=== PATIENT | male | born 1940 | race Caucasian/White ===

== ENCOUNTER → 2016-06-10 | Outpatient (CLI) | payer BC ==
[~2016-06-10] MED LIST: DIABETES MED; MULT-506; SIMV20TA2 PO
[2016-06-10 09:40] LABS: BASO % 1.1 %; BASO ABS # 0.07 K/uL (0-0.2); COMPLETE YES; EOS % 4.9 %; HEMATOCRIT 44.7 % (42-52); IG% 0.2 %; LYMPH % 30.7 %; LYMPH ABS # 2.02 K/uL (1.2-3.4); MEAN CELL VOLUME 88.7 fL (80-100); MEAN CORPUSCULAR HGB CONC 33.8 g/dl (32-36); MONO % 6.8 %; NEUT % 56.3 %; PLATELET COUNT 189 K/uL (130-400); RED BLOOD COUNT 5.04 M/uL (4.7-6.1); WHITE BLOOD COUNT 6.59 K/uL (4.8-10.8)
[2016-06-10 09:57] LABS: ESTIMATED AVERAGE GLUCOSE 120 mg/dl; HA1C FLAG Normal (Normal)
[2016-06-10 10:06] LABS: ALT/SGPT 36 U/L (12-78); BLOOD UREA NITROGEN 19 mg/dl (7-18); BUN/CREATININE RATIO 14.2 (10-20); CALCIUM 8.8 mg/dl (8.5-10.1); CARBON DIOXIDE 26 mmol/L (21-32); CHLORIDE 107 mmol/L (98-107); CHOLESTEROL 145 mg/dl (0-200); GLUCOSE 102 mg/dl (70-99); POTASSIUM 3.8 mmol/L (3.5-5.1); SODIUM 145 mmol/L (136-145); TRIGLYCERIDES 191 mg/dl (0-150); VERY LOW DENSITY LIPOPROT CALC 38 mg/dl
[2016-06-10 10:09] LABS: ALB/GLOB RATIO 1.2 (0.9-2); ALKALINE PHOSPHATASE 60 U/L (45-117); AST/SGOT 18 U/L (15-37); CHOLESTEROL/HDL RATIO 3.6; HDL CHOLESTEROL 40 mg/dl; LDL CHOLESTEROL CALCULATED 67 mg/dl
--- NOTE | 2016-06-17 10:06 | CODING QUERY MEDICAL NECESSITY ---
SUPPORTING DIAGNOSIS NEEDED A supporting diagnosis is required for the test/procedure performed on this patient in order for us to be reimbursed by the patient's insurance. Please provide a supporting diagnosis for the following test/procedure listed below next to the test name along with your signature. *If there is no additional diagnosis for this patient that would support the following test/procedure please document that below next to the test/procedure. Test(s)/Procedure(s) that require a supporting diagnosis: * GLYCATED HEMOGLOBIN DIAGNOSIS: * DOS: 06/10/16 Provider Signature: Date: Thank you Luda Springer [facility] Information Management Once completed, please kindly fax back to [phone] For questions please call [phone]
== END | disposition home or self-care (01) ==
LOC: C.LAB 08:58
PROVIDERS: ATTEND Internal Medicine
DX: E78.5 Hyperlipidemia, unspecified (principal); R73.09 Other abnormal glucose

== ENCOUNTER → 2016-12-17 | Outpatient (CLI) | payer BC ==
[2016-12-17 13:53] LABS: ESTIMATED AVERAGE GLUCOSE 123 mg/dl; HA1C FLAG Normal (Normal)
== END | disposition home or self-care (01) ==
LOC: C.LAB 12:04
PROVIDERS: ATTEND Internal Medicine
DX: R73.09 Other abnormal glucose (principal)

== ENCOUNTER → 2017-01-27 | Outpatient (CLI) | payer BC ==
--- NOTE | 2017-01-27 14:06 | DIAGNOSTIC IMAGING REPORT ---
CHEST 2 VIEWS ROUTINE CLINICAL HISTORY: COUGH dyspnea COMPARISON STUDY: No previous studies for comparison. FINDINGS: Mild emphysematous change. Lungs are clear. Diaphragms smooth but somewhat flattened. IMPRESSION: No acute process. The above report was generated using voice recognition software. It may contain grammatical, syntax or spelling errors. Electronically signed by: Mekhi Lopez M.D. 01/27/2017 2:04 PM Dictated Date/Time: 01/27/2017 2:04 PM
== END | disposition home or self-care (01) ==
LOC: C.RAD 13:40
PROVIDERS: ATTEND Physician Assistant
DX: R05 Cough (principal)

== ENCOUNTER → 2017-03-28 | Outpatient (CLI) | payer BC ==
--- NOTE | 2017-03-28 09:17 | DIAGNOSTIC IMAGING REPORT ---
SOFT TISS HEAD/NECK-THYROID CLINICAL HISTORY: 76 years-old Male presenting with M54.2 Neck pain on left side 03/28. TECHNIQUE: Real-time grayscale and color Doppler ultrasound imaging of the thyroid and base of the neck was performed. COMPARISON: None. FINDINGS: Right lobe: Normal echogenicity and echotexture. The right lobe of the thyroid measures 1.7 x 5.2 x 1.7 cm. 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 No parenchymal hyperemia. Left lobe: Normal echogenicity and echotexture. The left lobe of the thyroid measures 2.0 x 4.5 x 1.9 cm. No nodules. No parenchymal hyperemia. Isthmus: The isthmus measures 6 mm in thickness. No nodules. Other: At the site of clinical concern in the left superior cervical region, no sonographic abnormality or lymphadenopathy is detected. IMPRESSION: 1. Essentially normal thyroid ultrasound. 2. No sonographic abnormality at the site of clinical concern. Electronically signed by: Getachew Barrett M.D. 03/28/2017 9:15 AM Dictated Date/Time: 03/28/2017 9:13 AM
== END | disposition home or self-care (01) ==
LOC: C.ULTR 08:27
PROVIDERS: ATTEND Physician Assistant
DX: M54.2 Cervicalgia (principal)

== ENCOUNTER → 2017-06-11 | Outpatient (CLI) | payer BC ==
[2017-06-11 12:24] LABS: ALBUMIN 3.9 gm/dl (3.4-5.0); ALT/SGPT 29 U/L (12-78); BLOOD UREA NITROGEN 27 mg/dl (7-18); CALCIUM 9.5 mg/dl (8.5-10.1); CARBON DIOXIDE 28 mmol/L (21-32); CHOLESTEROL 142 mg/dl (0-200); CREATININE 1.45 mg/dl (0.60-1.40); GLUCOSE 106 mg/dl (70-99); POTASSIUM 4.3 mmol/L (3.5-5.1); SODIUM 141 mmol/L (136-145)
[2017-06-11 12:27] LABS: ALKALINE PHOSPHATASE 73 U/L (45-117); AST/SGOT 18 U/L (15-37); LDL CHOLESTEROL CALCULATED 53 mg/dl
== END | disposition home or self-care (01) ==
LOC: C.LAB 09:39
PROVIDERS: ATTEND Internal Medicine
DX: I35.8 Other nonrheumatic aortic valve disorders (principal)

== ENCOUNTER → 2017-06-16 | Outpatient (CLI) | payer BC ==
[2017-06-16 12:36] LABS: BLOOD UREA NITROGEN 26 mg/dl (7-18); CARBON DIOXIDE 28 mmol/L (21-32); CREATININE 1.32 mg/dl (0.60-1.40); GLUCOSE 110 mg/dl (70-99); POTASSIUM 4.1 mmol/L (3.5-5.1); SODIUM 142 mmol/L (136-145)
== END | disposition home or self-care (01) ==
LOC: C.LAB 10:20
PROVIDERS: ATTEND Internal Medicine
DX: N28.9 Disorder of kidney and ureter, unspecified (principal); R00.1 Bradycardia, unspecified

== ENCOUNTER 2017-06-20 06:35 | Observation (INO) | payer BC ==
[2017-06-20] VITALS (8 sets, daily range): BP systolic 130–154; BP diastolic 66–88; PULSE 37–60; TEMP 36.4–37.1; O2SAT 93–96; Ht 182.9 cm; Wt 99.1 kg
[~2017-06-20] VITALS: Ht 182.9 cm; Wt 99.1 kg
[~2017-06-20 06:35] MED LIST changes: +CEFAZOLIN 2000MG IV PUSH 15 ML IV SCH; +LACTATED RINGER'S 1000ML IV SCH
[2017-06-20] MEDS ORDERED: FENTANYL CITRATE INJ 50 MCG/1 ML 2 ML VIAL ONE ×2 (07:04→10:24)
[2017-06-20] MEDS ORDERED: MIDAZOLAM HCL 5 MG/ML 1 ML VIAL ONE ×2 (07:05→10:24)
[2017-06-20] MEDS ORDERED: PRAV20TA PO (07:41)
[2017-06-20] MEDS ORDERED: OMEG10007 PO (07:41)
[2017-06-20] MEDS ORDERED: OPTHALMIC OPB (07:41)
[2017-06-20] MEDS ORDERED: MULT-506 PO (07:41)
[2017-06-20] MEDS ORDERED: METF-384 PO (07:41)
[2017-06-20 08:09] LABS: PTT PATIENT 25.6 SECONDS (21.0-31.0)
[2017-06-20] MEDS ORDERED: CEFAZOLIN SOD 2000MG/15 ML IV PUSH IV ONE (08:25)
--- NOTE | 2017-06-20 09:07 | History & Physical Bridge Note ---
H&P Re-Evaluation Bridge Note: I have examined the patient, reviewed the History & Physical and in the interval since the performance of the History & Physical I have noted the following changes of clinical significance: No changes noted. I reviewed the indications, procedure, risks and alternatives of pacemaker implantation with him and his , they understand and he agrees to proceed. Consent obtained. I also reviewed the procedure and risks of sedation and he understands and agrees. Consent obtained.
--- NOTE | 2017-06-20 09:08 | Pre Sedation Assessment ---
Pre Sedation Assessment General Date of Sedation: Jun 20, 2017. Vital Signs Past 12 Hours Date Time Temp Pulse Resp B/P (MAP) Pulse Ox O2 Delivery O2 Flow Rate FiO2 06/20/17 07:47 36.6 37 18 130/66 (87) 93 Room Air Review Cardiovascular: + bradycardia, + irregularly irregular Lungs: lungs clear Pre-Sedation Airway Assessment Smoking Status: Former Smoker Hx of Sleep Apnea: No Short Thick Neck: No Thyro-mental Distance: > 3 Finger Breadths Oral Cavity: WNL Mallampati Classification: Class II ASA Classification: Class II NPO Status Date of Last Intake of Fluids: Jun 19, 2017 Time of Last Intake of Fluids: 2100 Date of Last Intake of Solids: Jun 19, 2017 Time of Last Intake of Solids: 1830 Procedure Planning Contraindications for Sedation: None Current Medications Reviewed: Yes Notes The planned sedation has been discussed with the patient. Informed Consent was obtained. I have identified the patient, determined the appropriateness of sedation and have assessed the patient immediately prior to the procedure. All medicine(s) and interventions are by my order.
[2017-06-20] MEDS ORDERED: LIDOCAINE HCL 1% 20 ML VIAL ONE (09:23)
[2017-06-20] MEDS ORDERED: BACITRACIN OINT 0.9 GM PKT ONE (10:51)
--- NOTE | 2017-06-20 11:05 | [facility] Operative Report ---
Operative Report Operative Date Jun 20, 2017. Pre-Operative Diagnosis Intermittent complete heart block Post-Operative Diagnosis Same Procedure(s) Performed left subclavian venogram Dual-chamber pacemaker implantation Surgeon Dr. Kennedy Electrical Engineering Manager Surgeon(s) None Estimated Blood Loss 20 cc Findings Good lead position, good measurements Specimens None Anesthesia Local with sedation Complication(s) None Disposition PCU Description of Procedure After obtaining informed consent for the procedure, the patient was brought to the laboratory and prepped and draped in the standard sterile manner. The left prepectoral region was anesthetized with 1% lidocaine local anesthetic and left axillary venipuncture was performed by percutaneous technique and a guidewire placed through the left subclavian vein into the superior vena cava. The area was further infiltrated with 1% lidocaine local anesthetic and a 5 cm incision was made parallel to the left clavicle and 2 cm below it and carried down to the anterior pectoralis fascia. A pacemaker pocket was formed by blunt dissection anterior to the pectoralis fascia and a bacitracin-soaked sponge (50, 000 units in 50 cc normal saline solution) was placed in the pocket. An 8 [employer] Medtronic lead introducer was placed over the guidewire into the left subclavian vein, the dilator and guidewire were removed and a bipolar active fixation steroid tipped ventricular lead was advanced through the introducer into the superior vena cava. A guidewire was placed through the introducer and the introducer was stripped from the lead and guidewire. Another 8 [employer] Medtronic lead introducer was placed over the guidewire into the left subclavian vein, the dilator and guidewire were removed and a bipolar active fixation steroid tipped atrial lead was advanced through the introducer into the superior vena cava. A guidewire was placed back through the introducer and the introducer was stripped from the lead and guidewire. Using a curved stylette the ventricular lead was advanced through the right ventricular outflow tract into the pulmonary artery and then using a straight stylette was positioned in the right ventricular apex. The screw was extended fixing the lead in position. Pacing and sensing thresholds were evaluated in bipolar configuration and are recorded on the implant data sheet. Using a curved stylette the atrial lead was positioned in the region of the atrial appendage and the screw extended fixing the lead in position. Pacing and sensing thresholds were evaluated in bipolar configuration and are recorded on the implant data sheet. Once the leads were in position they were attached to the anterior pectoralis fascia using 2 sutures of 2-0 silk around each lead collar. The bacitracin- soaked sponge was removed from the pocket, hemostasis was obtained, the pacemaker was attached to the leads and placed in the pocket with the leads coiled beneath it. The incision was closed with a running double subcutaneous closure of 3-0 V-Lock absorbable suture, followed by running subcuticular skin closure of 4-0 V-Lock absorbable suture. Bacitracin ointment was placed on the incision and a pressure dressing applied. I attest to the content of the Intraoperative Record and any orders documented therein. Any exceptions are noted below.
[2017-06-20] MEDS ORDERED: KETOROLAC TROMETHAMINE 10 MG TAB PO PRN (11:15)
[2017-06-20] MEDS ORDERED: ACETAMINOPHEN 325 MG TAB PO PRN (11:15)
--- NOTE | 2017-06-20 11:18 | Post Sedation Assessment ---
Post Sedation Assessment General Date of Sedation Jun 20, 2017. Vital Signs: Vital Signs Past 12 Hours Date Time Temp Pulse Resp B/P (MAP) Pulse Ox O2 Delivery O2 Flow Rate FiO2 06/20/17 07:47 36.6 37 18 130/66 (87) 93 Room Air Post Procedure Recovery Score Activity: (2) Moves 4 extremities * Respiration: (2) Deep breath/cough Circulation: (2) +/-20% PreAnes Value Consciousness: (2) Fully Awake Oxygen Saturation: (2) > 92% On Room Air Post Anesthesia Score: 10 Discharge Sedation Level of Care: Fast Track Phase II Post Sedation Plan On clinical assessment, the patient appears to have tolerated the sedation without complications. Patient is recovering as anticipated. Patient will continue to be monitored by nursing and may be discharged when sedation discharge criteria are met per below protocol. Upon Completions of procedure and additional 15 minutes continue every 5 minute vital signs and the P.A.R. score; then discharge to a Phase I or Fast Track to Phase II per the following guidelines: * Discharge Patient to appropriate Phase II area if PAR is 8 or greater or return to pre- procedure baseline. The post - procedure orders will be as directed. * If PAR score is less than 8 or not return to pre-procedure baseline then patient will follow Phase I monitoring till PAR is reached for Phase II. The Phase I may be done in procedure room or may call to secure a Phase I area. * If naloxone or flumazenil are used for reversal, hold in Phase I for an additional 60 -120 minutes before discharge to Phase II. Please call the Sedation Physician to re-evaluate and complete post-note for discharge to Phase II area. Do NOT discharge from procedure sedation or Phase 1 until post- sedation evaluation note is complete by procedure /sedation MD Sedation Discharge Instructions to be given to the patient at discharge to home.
[2017-06-20] MEDS ORDERED: IV FLUIDS COMPLETED PRN (14:00)
[2017-06-20] MEDS ORDERED: PRAVASTATIN SOD 40 MG TAB PO SCH (21:00)
[2017-06-21] VITALS: O2SAT 94
[2017-06-21 03:39] VITALS: BP 127/79; PULSE 59; TEMP 37; O2SAT 95
[2017-06-21 04:00] VITALS: O2SAT 94
--- NOTE | 2017-06-21 08:06 | DIAGNOSTIC IMAGING REPORT ---
CHEST 2 VIEWS ROUTINE CLINICAL HISTORY: EXACT TIME ORDERED Evaluate for pneumothorax and lead placement COMPARISON STUDY: 01/27/2017 FINDINGS: Placement of a bipolar cardiac pacemaker. Leads in good position. No evidence of pneumothorax. Minimal atelectasis left base. IMPRESSION: Placement of a permanent bipolar cardiac pacemaker with leads in good position. No evidence for pneumothorax. The above report was generated using voice recognition software. It may contain grammatical, syntax or spelling errors. Electronically signed by: Mekhi Lopez M.D. 06/21/2017 8:05 AM Dictated Date/Time: 06/21/2017 8:04 AM
[2017-06-21 08:14] VITALS: BP 131/74; PULSE 66; TEMP 36.6; O2SAT 93
[2017-06-21] MEDS ORDERED: MULTIVITAMIN TAB PO SCH (09:00)
--- NOTE | 2017-06-21 09:04 | Cardiology Follow-Up ---
Subjective Date of Service: Jun 21, 2017. Pt evaluation today including: conversation w/ patient, physical exam, lab review, review of studies, review of inpatient medication list History of Present Illness Doing well post op, no complaints, minimal discomfort Social History Smoking Status: Former Smoker History of Alcohol Use: Yes (occ drink) Review of Systems Respiratory: No shortness of breath Cardiac: No chest pain Objective Vital Signs Past 12 Hours Date Time Temp Pulse Resp B/P (MAP) Pulse Ox O2 Delivery O2 Flow Rate FiO2 06/21/17 08:14 36.6 66 20 131/74 (93) 93 Room Air 06/21/17 08:00 Room Air 06/21/17 04:00 94 Room Air 06/21/17 03:39 37.0 59 16 127/79 (95) 95 06/21/17 00:00 94 Room Air 06/20/17 23:36 37.1 58 16 149/84 (105) 94 Room Air Last Recorded Weight-Kilograms: 99.100 Physical Exam Constitutional: Level of Distress: NAD Lungs: Auscultation: breath sounds normal Cardiovascular: Heart Auscultation: RRR, no murmurs, no rubs Incision clean and dry, no bleeding or hematoma Data Imaging: CXR: Good lead position, no pneumothorax EKG: AV pacing appropriately Telemetry reviewed: mostly AV pacing, some A sense, V pace Pacer evaluation: Working well, good measurements Assessment and Plan Doing well post OP day #1. CXR good, pacer working well. Stable for discharge.
--- NOTE | 2017-06-21 09:11 | Discharge Instructions ---
Discharge Instructions Date of Service Jun 21, 2017. Admission Reason for Admission: Complete Atrial Ventricular Block Discharge Discharge Diagnosis / Problem: Pacemaker implantation Discharge Goals Goal(s): Improve disease control Activity Recommendations Activity Limitations: resume your previous activity . Instructions / Follow-Up Instructions / Follow-Up ACTIVITY RECOMMENDATIONS: * Do not raise affected arm over head for 2 weeks. SPECIAL CARE INSTRUCTIONS: * If bleeding occurs, apply direct pressure to area for 5 minutes. * Call your doctor if you have severe pain, fever, drainage or bleeding at site. * Keep dressing on and dry for 48 hours then remove. * Keep any scheduled doctor's appointment. * Implant Card - hand held device with website information given. SKIN IRRITATION: * You may experience some redness and/or swelling in the area where radiation was administered. If any skin irritation occurs, please contact your family physician. FOLLOW UP VISIT: Keep any scheduled doctor appointments. Current Hospital Diet Patient's current hospital diet: AHA Diet (Heart Healthy) Discharge Diet Recommended Diet: AHA Diet (Heart Healthy) Procedures Procedures Performed: Pacemaker implantation Pending Studies Studies pending at discharge: no Laboratory Results Hemoglobin A1c Test 06/11/17 09:47 Range/Units Estimated Average Glucose 126 mg/dl Hemoglobin A1c 6.0 H 4.5-5.6 % Lipid Panel Test 06/11/17 09:47 Range/Units Triglycerides Level 263 H 0-150 mg/dl Cholesterol Level 142 0-200 mg/dl HDL Cholesterol 36 mg/dl Cholesterol/HDL Ratio 3.9 LDL Cholesterol, Calculated 53 mg/dl Medical Emergencies . Who to Call and When: Medical Emergencies: If at any time you feel your situation is an emergency, please call 911 immediately. . Non-Emergent Contact Non-Emergency issues call your: Primary Care Provider . . "Provider Documentation" section prepared by Brett Kennedy. .
[2017-06-21 09:22] VITALS: BP 131/74; PULSE 66; TEMP 36.6; O2SAT 93
== END 2017-06-21 09:37 | disposition home or self-care (01) ==
LOC: C.ACU 06:35 → C.2T 11:15 → ENRESERV 14:34
PROVIDERS: ADMIT Internal Medicine Cardiovascular Disease; ATTEND Internal Medicine Cardiovascular Disease
DX: R00.1 Bradycardia, unspecified (principal); I44.2 Atrioventricular block, complete; I44.7 Left bundle-branch block, unspecified; E78.5 Hyperlipidemia, unspecified; Z83.49 Family history of other endocrine, nutritional and metabolic diseases; Z82.49 Family history of ischemic heart disease and other diseases of the circulatory system; Z87.891 Personal history of nicotine dependence; Z88.5 Allergy status to narcotic agent

== ENCOUNTER 2023-07-01 08:36 | Observation (INO) ==
--- NOTE | 2023-06-03 16:08 | PAT Medication Instructions ---
Medication Instructions Date of Service June 03, 2023 Home Medications Medication Instructions Recorded metformin 1,000 mg tablet 1,000 mg PO BID #180 tabs 12/16/22 multivitamin 1 tab PO QAM omega 3-hyf-uhv-fish oil 1,000 mg (120 mg-180 mg) capsule (Fish Oil) 1 cap PO QAM aspirin 81 mg tablet,delayed release 81 mg PO QPM ascorbate calcium (vitamin C) 500 mg tablet 500 mg PO QAM metformin 1,000 mg tablet 1,000 mg PO BID pravastatin 80 mg tablet 80 mg PO QPM tamsulosin 0.4 mg capsule 0.4 mg PO QPM ASK your prescriber and surgeon aspirin 81 mg tablet,delayed release 81 mg PO QPM STOP taking 2 weeks before surgery (or as soon as possible if surgery is within 2 weeks) omega 6-nel-tgp-fish oil 1,000 mg (120 mg-180 mg) capsule (Fish Oil) 1 cap PO QAM DO NOT take the morning of surgery multivitamin 1 tab PO QAM ascorbate calcium (vitamin C) 500 mg tablet 500 mg PO QAM metformin 1,000 mg tablet 1,000 mg PO BID Take evening before surgery metformin 1,000 mg tablet 1,000 mg PO BID pravastatin 80 mg tablet 80 mg PO QPM tamsulosin 0.4 mg capsule 0.4 mg PO QPM Other Notes If you have any questions please call us at [phone] or [phone] or [phone] or [phone]
--- NOTE | 2023-06-09 13:40 | Anesthesiology Consultation ---
Date of Service June 09, 2023 Assessment & Plan (1) Encounter for pre-operative examination: Chart Review Chart Review: Acceptable Risk for Surgery and Patient seen in Pre Admission Testing - Patient is NOT an OPJ candidate - Check BSG AM DOS Per PAT appt on 06/09/23, Covid positive 3-4 weeks ago- congestion and cough- have since resolved. also had Covid had same time. Will leave to surgeon's discretion if preop Covid testing needed Patient seen by EP 08/26/22= heart blockhas some intrinsic conduction. Actually not pacing much recently in the ventricle. Device function is normal. Normal longevity. No other arrhythmias detected. Murmur/crescendo systolic murmur. Will repeat echocardiogram. Left bundle branch block. Follow-up in 1 year. Teaching & Discussion Pre-Anesthesia Teaching/Discussion Notes: Instructed NPO after midnight before surgery,except medications with 15 cc of water. Medication instructions provided according to the PAT guidelines. History Surgery Operation Date: 07/01/23 08:50 Proposed Procedures p Right Total Hip Arthroplasty - Tre Mayfield MD Height/Weight Height: 6 ft Weight: 96.4 kg Allergies Allergy/AdvReac Type Severity Reaction Status Date / Time codeine AdvReac Severe Unknown Verified 06/09/23 13:34 Medications Home Medications Medication Instructions Recorded Confirmed Last Taken multivitamin 1 tab PO QAM 05/28/18 05/29/23 Unknown omega 0-vew-lpu-fish oil 1,000 mg 1 cap PO QAM 05/28/18 05/29/23 Unknown (120 mg-180 mg) capsule (Fish Oil) aspirin 81 mg tablet,delayed 81 mg PO QPM 02/04/19 05/29/23 Unknown release ascorbate calcium (vitamin C) 500 500 mg PO QAM 02/09/19 05/29/23 Unknown mg tablet metformin 1,000 mg tablet 1,000 mg PO BID #180 tabs 12/16/22 05/29/23 Unknown pravastatin 80 mg tablet 80 mg PO QPM 05/29/23 05/29/23 Unknown tamsulosin 0.4 mg capsule 0.4 mg PO QPM 05/29/23 05/29/23 Unknown Past Medical History Medical History (Updated 06/10/23 @ 12:35 by Nani Newman PA-C) CHB (complete heart block) s/p pacemaker CKD (chronic kidney disease), stage III Dyslipidemia LBBB (left bundle branch block) Murmur, cardiac No significant issues noted on 09/2022 ECHO Osteoarthritis Pacemaker 2018 [employer]. Medtronic. Following with Dr. Newton. Prediabetes on Metformin Exercise / Class Metabolic Activity II 4-5 Yardwork/Stairs/Walk up hill (one flight of stairs - no chest pain or SOB ) Past Family History Family History Father Cardiac disorder Thyroid disease Mother Thyroid disease Other Colorectal cancer Denies family history of Ovarian cancer Prostate cancer Diabetes Alzheimer disease Heart disease Myocardial infarction Breast cancer Lung cancer Hypertension Stroke Past Surgical History Surgical History History of appendectomy History of cataract surgery History of colonoscopy History of permanent cardiac pacemaker placement History of tonsillectomy Past Anesthesia History No Hx of Anesthesia Complications and No Family Hx of Anesthesia Complications History of PONV No Hx of PONV and No Hx of Motion Sickness Social History Smoking Status: Never smoker Do You Dip or Chew Tobacco: No Hx Alcohol Use: Yes Alcohol type: beer and wine alcohol intake frequency: a few times a month Hx Substance Use: No substance use type: does not use Review of Systems Patient denies chest pain, shortness of breath, dyspnea on exertion, reflux, cough, wheezing, palpitations. No hx of seizures, stroke, OK, apnea/snoring. No hx of blood clots or blood transfusions Physical Exam Vital Signs VITALS BP 106/69 P 60 TEMP 97.7 SP02 96% RESP 16 Constitutional no acute distress ENMT Mouth: no TMJ clicking Thyromental Distance: < 3.5 Finger Breadths (3.0) Mallampati Class: II Permanent implants to top right teeth Crowns molars Neck + limited neck extension Respiratory normal respiratory effort; no respiratory distress Auscultation: lungs clear to auscultation bilaterally; no wheezes Cardiovascular Rate/Rhythm: regular rate and regular rhythm Heart Sounds: + murmur (II/ murmur) Vessels: no carotid bruit Heart sounds mildly diminished throughout Musculoskeletal Spine: no pain with cervical ROM Extremities: extremities normal to inspection Psychiatric Orientation: alert Lab Results Anesthesia Preop Results Results Anesthesia Widget: 2 WBC 7.24 K/ul (4.8-10.8) 06/09/23 Hgb 13.3 g/dl (14.0-18.0) L 06/09/23 Hct 41.6 % (42.0-52.0) L 06/09/23 Plt 186 K/uL (130-400) 06/09/23 Na 142 mmol/L (136-145) 06/09/23 K 4.0 mmol/L (3.5-5.1) 06/09/23 Cl 109 mmol/L (98-107) H 06/09/23 CO2 29 mmol/L (21-32) 06/09/23 BUN 21 mg/dl (6-23) 06/09/23 Creat 1.06 mg/dl (0.6-1.4) 06/09/23 Glucose Level 102 mg/dl (70-99(Fasting)) H 06/09/23 PT 10.8 Seconds (9.0-12.0) 06/09/23 PTT 28 Seconds (21-31) 06/09/23 INR 1.0 (0.9-1.1) 06/09/23 HA1c 6.0 % (4.5-5.6) H 06/09/23 Blood Type B Positive 06/09/23 Antibody Screen NEGATIVE 06/09/23 Testing Electrocardiogram Date: 06/09/23 Atrial-paced rhythm with prolonged AV conduction at 61bpm LBBB When compared to EKG from May 28, 2018- electronic atrial pacemaker has replaced electronic ventricular pacemaker per cardio Chest X-Ray Date: 05/22/23 FINDINGS: Dual lead left subclavian pacemaker is unchanged in position. Lung volumes are normal. Lungs are clear. There is no pneumothorax or pleural effusion. Cardiac size is normal. Mediastinal contours are normal. There is no evidence for pulmonary edema. IMPRESSION: No acute cardiopulmonary findings. No change in appearance of the chest. Echocardiogram Date: 09/25/22 EF: 50-55% LV Function: normal Other Findings: + LVH (moderate/concentric ) Aortic sclerosis without stenosis Borderline aortic root dilation Other Testing Pacemaker check 03/20/2023 = Medtronic pacemaker. Normal battery parameters and leads. Battery/lead status 7.6 years. Atrial paced: 73.5%. Ventricular paced 1.1%. Ventricular events 1. Mode AAIR <--> DDDR.
--- NOTE | 2023-06-27 14:43 | History & Physical Report ---
Date of Service June 27, 2023 Assessment & Plan (1) Arthritis of right hip: 83-year-old gentleman with a 3-year history of increasing right hip pain discomfort consistent with advanced arthritis. He is failed conservative measures. He is ready to have his hip fixed/replaced. Plan: We talked about treatment options. Will going proceed with right total hip replacement. The risks Mente this procedure explained the patient and include but not limited to DVT PE infection neurological and vascular bl eeding palm pain limb range of motion test is fairly with symptoms incomplete relief of symptoms need for further surgery in future dislocation excetra. The patient understands and desires to proceed. Informed consent was obtained. He is diabetic and his hemoglobin A1c is pretty well-preserved maintained. He is planned to be discharged to home using [facility] home health program along with his 's assistance. Does have a history of kidney disease so if to be careful with NSAIDs. Will plan on DVT prophylaxis including thigh- high teds, SCDs, aspirin twice a day. History of Present Illness Chief Complaint: . Right hip pain. Primary Care Provider: Raúl Tsai DO . The patient is an 82-year-old gentleman from [place] and previous [employer] employee who presents for surgical treatment of his right hip. He has a 3-year history of increasing right hip pain discomfort is gradually gotten worse over time. He had 2 injection of the hip the first 1 helped quite a bit the last 1 did not help so much. Scribes groin and thigh pain. The more he walks the more it hurts. Limps more as the day goes on. He now presents for surgical treatment. Allergies Allergy/AdvReac Type Severity Reaction Status Date / Time codeine AdvReac Severe Unknown Verified 06/09/23 13:34 Home Medications Medication Instructions Recorded Confirmed Type multivitamin 1 tab PO QAM 05/28/18 05/29/23 History omega 6-hov-fvr-fish oil 1,000 mg 1 cap PO QAM 05/28/18 05/29/23 History (120 mg-180 mg) capsule (Fish Oil) aspirin 81 mg tablet,delayed 81 mg PO QPM 02/04/19 05/29/23 History release ascorbate calcium (vitamin C) 500 500 mg PO QAM 02/09/19 05/29/23 History mg tablet metformin 1,000 mg tablet 1,000 mg PO BID #180 tabs 12/16/22 05/29/23 Rx pravastatin 80 mg tablet 80 mg PO QPM 05/29/23 05/29/23 History tamsulosin 0.4 mg capsule 0.4 mg PO QPM 05/29/23 05/29/23 History Past Med/Surg History Medical History Osteoarthritis Prediabetes on Metformin Pacemaker 2018 CHB. [employer]. Following with Dr. Newton. Murmur, cardiac No significant issues noted on 09/2022 ECHO LBBB (left bundle branch block) Dyslipidemia CKD (chronic kidney disease), stage III CHB (complete heart block) s/p pacemaker Surgical History History of cataract surgery History of appendectomy History of colonoscopy History of tonsillectomy History of permanent cardiac pacemaker placement Family History Father Cardiac disorder Thyroid disease Mother Thyroid disease Other Colorectal cancer Denies family history of Ovarian cancer Prostate cancer Diabetes Alzheimer disease Heart disease Myocardial infarction Breast cancer Lung cancer Hypertension Stroke Social History Smoking Status: Never smoker Second Hand Exposure: No; Do You Dip or Chew Tobacco: No; Hx Alcohol Use: Yes Alcohol type: beer and wine Alcohol Intake Frequency: Monthly or Less Hx Substance Use: No Preferred Language: Tristanian Communication Ability: Effective Visual Impairment: Limited Hearing Ability: Normal Didactic Instructor Required: No Beliefs That Will Affect Care: None marital status: Current Living Situation: Spouse current occupational status: retired How many Children do You have: 3 Feels Safe at Home: Yes Childhood Exposure to Second-Hand Smoke: Yes caffeine: Yes Dental Care, Regularly: Yes Physical Activity Frequency: Daily Physical Activity Frequency Comment: Walking Seatbelt Use: always Sunscreen Use: Yes Assistive Devices: Glasses Review of Systems All systems reviewed & are unremarkable except as noted in HPI & below. Physical Exam . Physical examination reveals a pleasant elderly male looks younger than his stated age. Examination of the right hip reveal patient ambulates with an antalgic gait. Leg lengths appear pretty equal. He is got stiffness with hip motion and internally rotates to neutral at best. This recreates his pain. Negative straight leg raise. No knee effusion. He is neurologically intact. Constitutional WD/WN, vitals as above Neck trachea midline, no thyromegaly Respiratory normal respiratory effort, lungs clear to auscultation Cardiovascular RRR, no murmur, no edema Gastrointestinal (Abdomen) normal bowel sounds, soft, nontender, no hepatosplenomegaly Results & Data Results & Data Laboratory Results . Diagnostic Findings . X-rays of the hip were reviewed. Shows advanced right hip arthritis but is got complete loss of the superior joint space. She had quite a bit of a medial offset. Marked medial osteophyte formation. Good bone density. PG Care Time/CCT Total # of Minutes Spent Total Time Spent with Patient: Total time spent is greater than 50% in coordination of care (as documented) at patient's floor/unit and/or counseling patient: Coding Level of Care Code None Diagnoses Arthritis of right hip M16.11
[~2023-07-01 08:36] MED LIST changes: +BUPIVACAINE 0.5 % 5 MG/1 ML PF 10ML VIAL ONE; -CEFAZOLIN 2000MG IV PUSH 15 ML IV SCH; -DIABETES MED; -LACTATED RINGER'S 1000ML IV SCH; -MULT-506; -SIMV20TA2 PO
[2023-07-01] MEDS ORDERED: PROPOFOL IV EMULSION 10 MG/ML 20 ML VIAL IV ONE ×3 (09:48→11:21)
[2023-07-01] MEDS: LR 60ML/HR IV SCH (09:48)
[2023-07-01] MEDS: LR 500ML BOLUS, THEN 15ML/HR IV SCH (09:48)
[2023-07-01] MEDS ORDERED: ePHEDrine sulfate 50 MG/ML AMP ONE (09:48)
[2023-07-01] MEDS: CeleBREX 200 MG CAP PO SCH (09:49)
[2023-07-01] MEDS: ACETAMINOPHEN 500 MG TAB PO SCH ×2 (09:49→15:33)
[2023-07-01] MEDS: FAMOTIDINE 20 MG TAB PO SCH (09:49)
[2023-07-01] MEDS: METOCLOPRAMIDE HCL 10 MG TABLET PO SCH (09:50)
[2023-07-01] MEDS ORDERED: ATROPINE SULFATE 0.1 MG/ML 10ML SYR IV PRN (10:08)
[2023-07-01] MEDS ORDERED: ePHEDrine sulfate 50 MG/ML AMP IV PRN (10:08)
[2023-07-01] MEDS ORDERED: ONDANSETRON INJ 2 MG/ML 2 ML VIAL IV PRN ×2 (10:08→12:55)
[2023-07-01] MEDS ORDERED: fentaNYL citrate PF 100 MCG/2 ML VIAL IV PRN (10:08)
--- NOTE | 2023-07-01 10:25 | History & Physical Bridge Note ---
Date of Service July 01, 2023 History & Physical Bridge Note I have examined the patient, reviewed the History & Physical and in the interval since the performance of the History & Physical I have noted the following changes of clinical significance: no changes noted
[2023-07-01] MEDS: TRANEXAMIC ACID 1,000 MG **IV Pre-op IV SCH (10:30)
[2023-07-01] MEDS: ceFAZolin 2000MG 2,000 MG/15 ML SYR IV SCH ×2 (10:46→17:39)
[2023-07-01] MEDS: BUPIVACAINE/EPINEPHRINE 0.5% MPF 1:200,000 30 ML VIAL ONE (11:37)
[2023-07-01] MEDS ORDERED: GLUCOSE 10 TAB/TUBE PO PRN (12:09)
[2023-07-01] MEDS ORDERED: DEXTROSE 50% 50 ML SYRINGE IV PRN (12:09)
[2023-07-01] MEDS ORDERED: GLUCAGON FOR INJ 1 MG VIAL SQ PRN (12:09)
[2023-07-01] MEDS ORDERED: GLUCOSE 40% GEL 15 GM TUBE PO PRN (12:09)
[2023-07-01] MEDS ORDERED: CARBOHYDRATES FOR HYPOGLYCEMIA PO PRN (12:09)
--- NOTE | 2023-07-01 12:14 | Operative Report ---
PG Post Operative Report Pre & Post Diagnosis Operation Date: 07/01/23 10:40 Pre-Op Diagnosis: Right Hip Dengerative Joint Disease Post-Op Diagnosis: Right Hip Dengerative Joint Disease I identified the patient and participated in the time-out.: Yes Procedure Operation Date: 07/01/23 10:40 Actual Procedures p Right Total Hip Arthroplasty(Right) - Tre Mayfield MD Surgeon Tre Mayfield MD Physician Ophthalmologist Ashutosh Quick PA-C Estimated Blood Loss 100 Findings Consistent with Post-Op Diagnosis Operative findings revealed advanced right hip DJD. He had pretty extensive grade 4 tqhv-so-pyak disease of the femoral head and acetabulum. He had significant anterior acetabular osteophytes. Fairly large medial osteophyte as well. Moderate-sized joint effusion. Specimens Right femoral head sent for pathology Anesthesia Type Spinal MAC Complications none Disposition Accompanied Patient To Recovery: No Indications Patient is an 82-year-old fairly active gentleman has had a several year history of increasing right hip pain discomfort describes gotten worse over time. Failed conservative measures. X-rays showed advanced hip arthritis. He elects proceed with surgical treatment. Description of Procedure Operative implants consist of: 1. Biomet G7 size 58 mm acetabular shell. 2. Pratt hole welder/installer. 3. 6.5 cancellous acetabular screws 1 of 35 mm length and 1 of 25 mm length. 4. Highly cross-linked polyethylene liner with a 58 mm outer diameter and 40 mm inner diameter. 5. DePuy Karaya size 11 KLA femoral stem. 6. +5/40 mm ceramic articular ball. The patient was taken to the operating, identified, placed on the operating table in supine position. All contact areas were properly padded. IV antibiotics tried by anesthesia team. A spinal anesthetic had been implemented holding area. The patient is then placed in the left lateral decubitus position. An axillary roll was placed. Distal Birkett position was used for positioning. The right hip and leg were then prepped and draped in usual sterile fashion. A posterolateral approach to the right hip was then performed to a curvilinear incision centered over the greater trochanter. Sharp dissection Through subcutaneous tissue down to level the IT band gluteal fascia but the IT band gluteal fascia was sized longitudinally in line with skin incision. The underlying greater bursa was excised. The piriformis and external rotators along with the posterior hip joint capsule were then released from the posterior aspect the hip as a single layer. Hip was internally rotated and dislocated. A femoral neck osteotomy cut was made with Final Cut 15 mm above the lesser trochanter. Femoral head was removed and sent for pathology. The femur was retracted anteriorly. Attention drawn the acetabulum. The acetabular labrum was excised. The pulmonary fat was excised. Sequential reaming the acetabular was then performed beginning with size 47 and progressing up to a 57. I reamed a little bit with a 58 reamer and then placed a 58 mm Biomet G7 acetabular shell in about 40 degrees lateral opening and 20 degrees of anteversion. It was fixed with two 6.5 cancellous acetabular screws. An anterior osteophyte was removed. Trial liner was placed. Attention drawn the femur. The proximal femur was entered with a Socrata cutter followed by canal finder. I broached beginning size 8 and progressed up to 11. I did not think I could get the 12 broach down this 11 was quite tight. We trialed the hip and the +5 articular ball provide full stability and what appeared to be equal soft tissue tension and the leg lengths. We elect to place his implants. All trial implants were removed. Pratt van owner operator was placed. Highly cross- linked polyethylene liner was placed. A size 11 KLA femoral stem was impacted in position. A +5/40 mm ceramic articular ball was placed. Hip was located once again found to be stable. Attention drawn toward closing. The wound was irrigated coconuts of pulsatile lavage solution. I did inject locally with 60 cc of half percent Marcaine with epinephrine. Posterior capsule and external rotators then repaired through drills in the posterior trochanter with #2 Tycron suture. The IT band gluteal fascia then closed in 1 PDS suture running fashion. Subcutaneous tissues then closed with 2 layers of the deep layer #1 Vicryl suture and subcutaneous tissue with 2 Dexon suture in a buried interrupted fashion. Skin was closed skin bradford. Leg was then cleaned and dried and a sterile dressing with Xeroform, 4 fours, ABD and pad and foam tape was applied. The patient then transferred to the recovery room in stable condition. Patient tolerated procedure well and there were no complications. Ashutosh Quick, my physician planning assistant, was present for the entire procedure. His assistance was essential and required for appropriate patient positioning, prepping and draping, surgical exposure, performing the technical details of the operation, placement the implants, closure of the wound, and placement of the sterile bandage. I attest to the content of the Intraoperative Record and any orders documented therein. Any exceptions are noted below.
[2023-07-01] MEDS ORDERED: HYDROmorphone INJ 0.5 MG/0.5 ML SYR IV PRN (12:55)
[2023-07-01] MEDS ORDERED: bisacodyL 10 MG SUPP PR PRN (12:55)
[2023-07-01] MEDS ORDERED: ALUMINUM/MAGNESIUM SUSP 30 ML UDC PO PRN (12:55)
[2023-07-01] MEDS ORDERED: METOCLOPRAMIDE HCL INJ 5 MG/ML 2 ML VIAL IV PRN (12:55)
[2023-07-01] MEDS ORDERED: traMADol HCL 50 MG TABLET PO PRN (12:55)
[2023-07-01] MEDS ORDERED: NALOXONE HCL 0.4 MG/1 ML VIAL/CARP IV PRN (12:55)
[2023-07-01] MEDS ORDERED: MAGNESIUM HYDROXIDE SUSP 30 ML UDC PO PRN (12:55)
[2023-07-01] MEDS ORDERED: ACETAMINOPHEN 500 MG TAB PO SCH (14:00)
[2023-07-01] MEDS: SODIUM CHLORIDE 0.9% 1,000 ML IV SCH (14:48)
--- NOTE | 2023-07-01 15:34 | Anesthesiology Progress Note ---
Date of Service July 01, 2023 Anesthesia Post Procedure Vital Signs Vital Signs: Temp Pulse Pulse Resp BP Pulse Ox O2 Del Method 07/01/23 15:31 36.3 C L 69 16 93/53 L 96 Room Air 07/01/23 14:54 36.6 C 63 17 100/60 96 Room Air 07/01/23 14:30 36.4 C L 69 18 105/55 L 97 Room Air 07/01/23 14:10 36.3 C L 63 16 98/51 L 97 Room Air 07/01/23 14:00 63 16 99/51 L 97 Room Air 07/01/23 13:50 63 12 109/48 L 94 Room Air 07/01/23 13:40 65 14 94/47 L 94 Room Air 07/01/23 13:30 36.3 C L 63 16 104/49 L 93 Room Air 07/01/23 13:20 65 16 97/49 L 94 Room Air 07/01/23 13:10 66 12 107/48 L 92 Room Air 07/01/23 13:00 66 12 100/48 L 94 Room Air 07/01/23 12:50 64 19 99/47 L 96 Room Air 07/01/23 12:40 65 18 95/52 L 94 Room Air 07/01/23 12:30 62 15 95/43 L 95 Room Air 07/01/23 12:20 62 12 101/44 L 98 Oxymask 07/01/23 12:10 61 12 100/43 L 100 Oxymask 07/01/23 12:04 36.1 C L 63 20 102/45 L 96 Oxymask 07/01/23 09:20 36.9 C 73 20 134/68 94 Room Air O2 Flow Rate 07/01/23 15:31 07/01/23 14:54 07/01/23 14:30 07/01/23 14:10 07/01/23 14:00 07/01/23 13:50 07/01/23 13:40 07/01/23 13:30 07/01/23 13:20 07/01/23 13:10 07/01/23 13:00 07/01/23 12:50 07/01/23 12:40 07/01/23 12:30 07/01/23 12:20 3 07/01/23 12:10 4 07/01/23 12:04 6 03/26/24 09:20 Transfer of Care Handoff Completed per policy Notes Mental Status: alert / awake / arousable and participated in evaluation Patient Amnestic to Procedure: Yes Nausea / Vomiting: adequately controlled Pain: adequately controlled Airway Patency, RR, SpO2: stable & adequate BP & HR: stable & adequate Hydration State: stable & adequate Neuraxial Anesthesia: was administered and sensory block is resolving Anesthetic Complications: no major complications apparent and Pt Satisfied with anesthetic care
--- NOTE | 2023-07-01 15:57 | XRay Report ---
SINGLE VIEW PELVIS; SINGLE VIEW RIGHT HIP CLINICAL HISTORY: Postoperative examination. FINDINGS: An AP portable view of the hips and pelvis with a crosstable lateral portable view of the r ight hip are compared to study dated 12/03/2022. A bipolar right hip arthroplasty is in near-anatomic alignment. At least 2 cortical lag screws transfix the acetabular cup. No acute fracture is identifie d. There are expected postoperative changes overlying the right hip including skin clips, subcutaneou s gas, and soft tissue swelling. Mild arthritic changes noted in the left hip. A phlebolith is seen i n the pelvis. IMPRESSION: Expected postoperative findings status post right hip arthroplasty. No acute fracture is seen. ACT 112: Negative or not required by law. Electronically signed by: Sudhakar Royal M.D. 07/01/2023 3:56 PM
[2023-07-01 16:33] VITALS: PULSE 60
[2023-07-01] MEDS: ASCORBIC ACID 500 MG TAB PO SCH (16:37)
[2023-07-01] MEDS: KETOROLAC TROMETHAMINE 15 MG/ML VIAL IV SCH (17:39)
[2023-07-01] MEDS: TRANEXAMIC ACID / 0.7% NACL 1,000 MG/100 ML BAG IV SCH (17:39)
[2023-07-01] MEDS: DOCUSATE SODIUM 100 MG CAP PO SCH (20:32)
[2023-07-01] MEDS: SENNA 8.6 MG TAB PO SCH (20:32)
[2023-07-01] MEDS: TAMSULOSIN HCL 0.4 MG CAP PO SCH (20:32)
[2023-07-01] MEDS: PRAVASTATIN SOD 40 MG TAB PO SCH (20:32)
[2023-07-01] MEDS: ASPIRIN 81 MG ECTAB PO SCH (20:32)
[2023-07-01] MEDS ORDERED: SENNA 8.6 MG TAB PO SCH (21:00)
[2023-07-02 03:04] VITALS: O2SAT 95
[2023-07-02 06:47] LABS: Basophils # (auto) 0.04 K/uL (0.00-0.20); Basophils % (auto) 0.7 %; Eosinophils # (auto) 0.02 K/uL (0.00-0.50); Eosinophils % (auto) 0.4 %; Hemoglobin 11.7 g/dl (14.0-18.0); Immature Granulocytes # (auto) 0.02 K/uL (0.01-0.20); Immature Granulocytes % (auto) 0.4 %; Lymphocytes # (auto) 1.01 K/uL (1.20-3.40); Lymphocytes % (auto) 18.1 %; Mean Corpuscular Hemoglobin 30.3 pg (25.0-34.0); Mean Corpuscular Hgb Conc 33.4 g/dL (32.0-36.0); Mean Corpuscular Volume 90.7 fL (80.0-100.0); Mean Platelet Volume 9.3 fL (9.4-12.4); Monocytes # (auto) 1.11 K/uL (0.11-0.59); Monocytes % (auto) 19.9 %; Neutrophils # (auto) 3.38 K/uL (1.40-6.50); Neutrophils % (auto) 60.5 %; Platelet Count 198 K/uL (130-400); RDW Coefficient of Variation 12.9 % (11.5-14.5); RDW Standard Deviation 42.4 fL (36.4-46.3); Red Blood Count 3.86 M/uL (4.70-6.10); White Blood Count 5.58 K/ul (4.8-10.8)
[2023-07-02 07:15] LABS: BUN Creatinine Ratio 12.5 (10-20); Calcium 7.8 mg/dl (8.6-10.3); Creatinine Clr Calc Pharmacy 53.9 ml/min; Est GFR (African American) 69.5 ml/min; Potassium 3.8 mmol/L (3.5-5.1)
[2023-07-02 08:06] VITALS: RESP 18; TEMP 97.7
[2023-07-02] MEDS: dexAMETHasone 4 MG TAB PO SCH (08:29)
[2023-07-02] MEDS: OMEGA-3 (PURIFIED FISH OIL) 1 GM CAP PO SCH (08:30)
[2023-07-02] MEDS: MULTIVITAMIN TAB PO SCH (08:30)
[2023-07-02] MEDS ORDERED: NON-FORMULARY MEDICATION (Multivitamin Tablet) PO SCH (09:00)
[2023-07-02] MEDS ORDERED: ASCORBIC ACID 500 MG TAB PO SCH (09:00)
--- NOTE | 2023-07-02 09:34 | Surgery Progress Note ---
Date of Service July 02, 2023 Assessment & Plan (1) Status post right hip replacement: Plan: 82-year-old gentleman postop day 1 from right knee replacement doing well. Pain is controlled. Hips located. He is neurologically intact. Plan: 1. DVT prophylaxis including thigh-high teds, SCDs, aspirin twice a day. 2. PT/OT. Weight-bear as tolerated. Right total hip protocol. 3. Pain control. Doing well with current Pain regimen. 4. Disposition. Plan to discharge to home with some home health if he does okay in therapy today. Admission and Anticipated Discharge Date Admission Date: July 01, 2023 Subjective 82-year-old gentleman postop day 1 from right hip replacement. He is doing well. Had a good night. Not a lot of sleep but not much pain. He says his hip feels better than it did before surgery. No chest pain or shortness of breath. Not feeling dizzy or lightheaded. Physical Exam Physical Exam: Examination was a pleasant elderly male. Awake alert and oriented. Lying bed looks comfortable. Examination of the right hip reveals the dressing be clean dry and intact. Leg lengths are equal. He can dorsiflex and plantarflex his foot appropriately. He is neurologically intact. Respiratory: normal respiratory effort, lungs clear to auscultation Cardiovascular: RRR, no murmur, no edema Gastrointestinal (Abdomen): normal bowel sounds, soft, nontender, no hepatosplenomegaly Results & Data Vital Signs (Past 12 Hours) Vital Signs Temp Pulse Pulse Resp BP Pulse Ox O2 Del Method 07/02/23 07:30 36.5 C 60 18 95 Room Air 07/02/23 03:04 36.4 C L 60 16 97/60 L 95 Room Air 07/01/23 23:19 36.6 C 60 16 107/63 96 Room Air Laboratory Results Hemoglobin is 11.7. Hematocrit is 35.0. Electrolytes are stable. PG Care Time/CCT Total # of Minutes Spent Total Time Spent with Patient: Total time spent is greater than 50% in coordination of care (as documented) at patient's floor/unit and/or counseling patient: Coding Level of Care Code None Diagnoses Status post right hip replacement Z96.641
[2023-07-02 10:30] VITALS: BP 120/70
--- NOTE | 2023-07-02 12:22 | Orthopedic Progress Note ---
Date of Service July 02, 2023 Assessment & Plan (1) Status post right hip replacement: On July 01, 2023 Ernie arrived at [facility] and underwent a right total hip arthroplasty performed by Dr. Mayfield without complications. He had a spinal anesthetic. Postoperatively, he was started on aspirin for DVT prophylaxis and transferred to the general orthopedic floor in stable condition. His hospital course was uneventful. On postoperative day #1, his vital signs were stable and his pain was well-controlled. He participated well with physical therapy work on ambulation and range of motion exercises. He was then discharged home in stable condition. He will follow-up with Dr. Mayfield in [address] [place] [address] for postoperative management. Subjective . Review of Systems All systems reviewed & are unremarkable except as noted in HPI & below. Physical Exam . Physical Exam: Examination was a pleasant elderly male. Awake alert and oriented. Lying bed looks comfortable. Examination of the right hip reveals the dressing be clean dry and intact. Leg lengths are equal. He can dorsiflex and plantarflex his f oot appropriately. He is neurologically intact. Respiratory: normal respiratory effort, lungs clear to auscultation Cardiovascular: RRR, no murmur, no edema Gastrointestinal (Abdomen): normal bowel sounds, soft, nontender, no hepatosplenomegaly Results & Data Results & Data Laboratory Results . Diagnostic Findings . PG Care Time/CCT Total # of Minutes Spent Total Time Spent with Patient: Total time spent is greater than 50% in coordination of care (as documented) at patient's floor/unit and/or counseling patient: Coding Level of Care Code 99428 Post Operative Follow-Up Diagnoses Status post right hip replacement Z96.641
--- NOTE | 2023-07-02 12:24 | Discharge Summary ---
Date of Service July 02, 2023 Admission HPI (Per Admitting) . The patient is an 82-year-old gentleman from [place] and previous [employer] employee who presents for surgical treatment of his right hip. He has a 3-year history of increasing right hip pain discomfort is gradually gotten worse over time. He had 2 injection of the hip the first 1 helped quite a bit the last 1 did not help so much. Scribes groin and thigh pain. The more he walks the more it hurts. Limps more as the day goes on. He now presents for surgical treatment. Admission Exam (Per Admitting) . Physical examination reveals a pleasant elderly male looks younger than his stated age. Examination of the right hip reveal patient ambulates with an antalgic gait. Leg lengths appear pretty equal. He is got stiffness with hip motion and internally rotates to neutral at best. This recreates his pain. Negative straight leg raise. No knee effusion. He is neurologically intact. Principal Diagnosis Same as "Discharge Diagnosis" noted below under Discharge Instructions. Discharge Exam Physical Exam: Examination was a pleasant elderly male. Awake alert and oriented. Lying bed looks comfortable. Examination of the right hip reveals the dressing be clean dry and intact. Leg lengths are equal. He can dorsiflex and plantarflex his foot appropriately. He is neurologically intact. Respiratory: normal respiratory effort, lungs clear to auscultation Cardiovascular: RRR, no murmur, no edema Gastrointestinal (Abdomen): normal bowel sounds, soft, nontender, no hepatosplenomegaly Discharge Data Procedures Performed Operation Date: 07/01/23 10:40 Actual Procedures p Right Total Hip Arthroplasty(Right) - Tre Mayfield MD Hospital Course (1) Status post right hip replacement: On July 01, [address] [facility] and underwent a right total hip arthroplasty performed by Dr. Mayfield with no complications. He had a spinal anesthetic. Postoperatively, he was started on aspirin for DVT prophylaxis and transferred to the general orthopedic floor in stable condition. His hospital course was uneventful. On postoperative day #1, his vital signs were stable and his pain was well-controlled. He participated well with physical therapy working on ambulation and range of motion exercises. He was then discharged home in stable condition. He will follow-up with Dr. Mayfield in 2 weeks for postoperative management. PG Care Time/CCT Total # of Minutes Spent Total Time Spent with Patient: Total time spent is greater than 50% in coordination of care (as documented) at patient's floor/unit and/or counseling patient: Discharge Plan Discharge Items Patient Disposition: Home - Home Health Services Reason For Visit: Right Hip Dengerative Joint Disease Discharge Diagnosis: Right HIp Replacement Activity: Per Instructions section Activity Comment: Follow/Obey hip precautions at all times. Weightbearing: Full weightbearing Weightbearing Comment: Weightbear as tolerated obeying hip precautions at all times. Non-emergency contact: Surgeon Call non-emergency contact if: you have any medication questions Follow-up/Referrals: Raúl Tsai DO [Primary Care Provider] - Diet: Carb Consistent or DM2 Addtl Attending Provider Instructions: ACTIVITY RECOMMENDATIONS: Physical Therapy: * Aggressive physical therapy is not usually needed. You will learn to take care of yourself safely and walk. * Follow the "Hip Precautions Instructions." * In some cases, the mental health social worker at the hospital will arrange to have a therapist come to your house for the first couple of weeks to help you learn these skills. * You need to practice on your own or with the help of a family member as needed. * When you learn these skills, most of the therapy can be done on your own. Home Exercise: * You were shown a series of exercises in the hospital. Do these exercises three to four times each day including the exercises you were shown in physical therapy. Walking: * Get up and walk several times each day. For the first four weeks, try not to stand or walk for more than one hour at a time. If you do stand or walk for more than one hour, you will not hurt anything, but your leg will likely swell. * As you feel comfortable, you may change from the walker or crutches to a cane and then to independent walking. MEDICATIONS: New Medicine: * You will likely be taking one or more of these medicines: 1. Tramadol - Take, as directed, when you need it, every six hours to control your pain. 2. Aspirin - Thins your blood to lessen the chance of forming a blood clot. * The most common side effects of pain medicine and iron are nausea and constipation. If nausea or constipation is too much of a problem or if you have any questions about your new medicines or doses, call [facility] at . We will try to help you manage these issues. "VERY IMPORTANT TO READ AND REVIEW" Pain: * The immediate post-operative period after hip replacement surgery is often quite painful. * You are given a prescription for pain medicine. You should take it, as directed, when you need it, especially before physical therapy and before going to bed. Pain that interferes with sleep is very common and can last several months. * You will likely need pain medicine for the first two to four weeks. It will not stop all of the pain. The pain will lessen and as you feel better, you may change to milder pain medicine such as Tylenol. * The most common side effects of pain medicine are nausea and constipation, so don't take more than you need. SPECIAL CARE INSTRUCTIONS: TEDs/Elastic Stockings: * The white elastic stockings help limit swelling and prevent blood clots from forming in your legs. The more you wear them, the more they work. * Wear them for six weeks. Incision Site Care: * Remove dressing postoperative day 2 and then shower. Keep direct shower pressure off the incision site. * After showering, cover bradford with dry gauze and change daily or more frequently if the dressing is getting saturated with drainage. * May completely stop using bandage if wound is dry and no drainage * [place] are removed between 2 and 3 weeks post-op. If your follow-up appointment is made before 2 weeks, please have your appointment re- scheduled. It is too early to remove the bradford. Prevention of Infection: * Take antibiotics one hour before any dental cleaning, dental work, urological procedure, gastrointestinal procedure or any invasive surgery in order to prevent your new joint from getting infected. * You may get the antibiotics from the doctor performing the procedure or you may call our office at before and we will call in a prescription to the pharmacy of your choice. Things to Watch For: * Drainage from the incision site that occurs more than one week after your surgery. * Severely increased leg pain or swelling. * Increased redness at the incision site. * Fever above 102 degrees Fahrenheit. * Unusual chest pain or shortness of breath. * Unusual pain or burning with urination. Call [facility] at with any of the above problems or if you have any questions about your medicines or recovery. FOLLOW UP VISIT: Make an appointment to see your doctor for approximately two weeks after surgery for a progress check and staple removal by calling the office at . Pending Studies at Discharge: No Stand-Alone Forms: [facility], Smoking Cessation Medications and DC Order Prescriptions: Continued metformin 1,000 mg tablet 1,000 mg PO BID Qty: 180 3RF tramadol 50 mg tablet 50 - 100 mg PO Q8H PRN (Reason: pain) Qty: 40 0RF Rx Instructions: Take as needed for pain ondansetron 4 mg tablet,disintegrating 4 mg PO Q8 PRN (Reason: nausea) Qty: 20 1RF Patient Comments: post op Rx Instructions: Take as needed for nausea sennosides [Senokot] 8.6 mg tablet 8.6 mg PO BID 14 Days Qty: 28 0RF Patient Comments: post op Rx Instructions: Take two times a day to prevent/treat constipation acetaminophen [Tylenol Extra Strength] 500 mg tablet 1,000 mg PO TID 30 Days Qty: 180 0RF Patient Comments: post op Rx Instructions: Take 3 times per day to lessen pain. aspirin [Dmitri Low Dose Aspirin] 81 mg tablet,delayed release (DR/EC) 81 mg PO BID 45 Days Qty: 90 0RF Patient Comments: post op Rx Instructions: Take to prevent blood clots. aspirin 81 mg tablet,delayed release (DR/EC) 81 mg PO QPM ascorbate calcium (vitamin C) 500 mg tablet 500 mg PO QAM multivitamin Tablet 1 tab PO QAM omega [id number] oil [Fish Oil] 1,000 mg (120 mg-180 mg) Capsule 1 cap PO QAM pravastatin 80 mg tablet 80 mg PO QPM tamsulosin 0.4 mg capsule 0.4 mg PO QPM Krames/Other Patient Handouts: How Your Hip Works Admission Data Admit Date/Time: 07/01/23 12:08 Attending Provider: Tre Mayfield Admit Provider: Tre Mayfield Primary Care Provider: Raúl Tsai Other Providers: [facility],Home Health Other Interventions: Discharge Summary Assessment (RN) Last Done: 07/02/23 10:54
== END 2023-07-02 11:35 | disposition home health service (06) ==
LOC: 3E 08:36 → ASU 08:36